=== PATIENT | female | born 1975 | race Caucasian/White ===

== ENCOUNTER 2023-10-05 10:04 | Emergency (ER) | payer SELFPAY ==
[~2023-10-05] VITALS: Ht 162.6 cm; Wt 90.9 kg
[2023-10-05 10:05] VITALS: TEMP 98.2
[2023-10-05] MEDS ORDERED: dilTIAZem 25 MG/5 ML VIAL IV ONE (10:30)
[2023-10-05 10:45] LABS: BASO # 0.1 K/mm3 (0.0-0.2); BASO % 1.2 % (0.0-2.0); EOS # 0.1 K/mm3 (0.0-0.7); EOS % 1.2 % (0.0-4.0); GRAN # 2.1 K/mm3 (1.4-6.5); GRAN % 51.8 % (42.2-75.2); LYMPH # 1.5 K/mm3 (1.2-3.4); LYMPH % 37.1 % (20.0-51.0); MEAN CELL VOLUME 76 fl (80.0-100.0); MEAN CORPUSCULAR HGB CONC 29 g/dl (33.0-37.0); MEAN PLATELET VOLUME 9.6 fl (7.4-10.4); MONO # 0.3 K/mm3 (0.1-0.6); MONO % 8.5 % (1.7-9.3); PLATELET COUNT 342 K/mm3 (130-400); RED BLOOD COUNT 3.88 M/mm3 (4.10-5.30); REDCELL DISTRIBUTION WIDTH-CV 18.7 % (11.5-14.5)
[2023-10-05 10:48] LABS: HEMATOCRIT 29.4 % (37.0-47.0); HEMOGLOBIN 8.6 g/dl (12.5-16.0); MEAN CORPUSCULAR HEMOGLOBIN 22 pg (27-31)
[2023-10-05 10:57] LABS: ALANINE AMINOTRANSFERASE 15 U/L (0-55); ALBUMIN 3.5 gm/dL (3.5-5.0); ALKALINE PHOSPHATASE 63 U/L (40-150); ANION GAP 11 mmol/L (7-16); AST,SGOT 20 U/L (5-34); BLOOD UREA NITROGEN 6 mg/dL (7-19); CALCIUM 8.5 mg/dL (8.4-10.2); CARBON DIOXIDE 19 mmol/L (22-29); CHLORIDE 109 mmol/L (98-107); CREATININE, serum 0.69 mg/dL (0.57-1.11); GLUCOSE 98 mg/dL (70-99); POTASSIUM 3.3 mmol/L (3.5-4.5); SODIUM 139 mmol/L (136-145); TOTAL PROTEIN 6.5 gm/dL (6.2-8.1)
[2023-10-05 11:13] LABS: TROPONIN-I < 0.010 ng/mL (0.00-0.033)
[2023-10-05] MEDS ORDERED: CARDIZEM CD 12120 MG PO (11:36)
[2023-10-05] MEDS ORDERED: XARELTO20 MG PO (11:36)
[2023-10-05 11:55] VITALS: BP 121/83; PULSE 98
[2023-10-08] MEDS ORDERED: ATARAX 25MG25 MG/TAB PO (16:12)
[2023-10-08] MEDS ORDERED: PEPCID40 MG PO (16:13)
[2023-10-08] MEDS ORDERED: NATURAL IRON65 MG PO (16:53)
[2023-10-09] MEDS ORDERED: MULTAQ400 MG PO (15:31)
== END 2023-10-05 11:59 | disposition home or self-care (01) ==
LOC: COL.ER 10:04
PROVIDERS: Personal Emergency Response Attendant
DX: I48.91 Unspecified atrial fibrillation (principal); D64.9 Anemia, unspecified; E87.6 Hypokalemia; Z87.891 Personal history of nicotine dependence

== ENCOUNTER → 2023-11-12 | Outpatient (CLI) | payer BC ==
[~2023-11-12] MED LIST: ATARAX 25MG25 MG/TAB PO; CARDIZEM CD 12120 MG PO; MULTAQ400 MG PO; NATURAL IRON65 MG PO; PEPCID40 MG PO; XARELTO20 MG PO
== END ==
LOC: MC.RAD 16:44
DX: Z12.31 Encounter for screening mammogram for malignant neoplasm of breast (principal); N63.20 Unspecified lump in the left breast, unspecified quadrant; N64.89 Other specified disorders of breast

== ENCOUNTER → 2023-11-25 | Outpatient (CLI) | payer BC | LOC: MC.RAD 12:56 | DX: N63.22 Unspecified lump in the left breast, upper inner quadrant (principal) ==

== ENCOUNTER 2024-05-26 10:37 | Emergency (ER) | payer BC ==
[~2024-05-26] VITALS: Ht 162.6 cm; Wt 97.7 kg
[2024-05-26 10:40] VITALS: TEMP 98.1
[2024-05-26] MEDS ORDERED: NS 1,000 ML IV ONE (11:00)
[2024-05-26 11:03] LABS: BASO # 0.1 K/mm3 (0.0-0.2); EOS % 0.3 % (0.0-4.0); GRAN # 4.7 K/mm3 (1.4-6.5); HEMOGLOBIN 11.6 g/dl (12.5-16.0); LYMPH # 1.8 K/mm3 (1.2-3.4); LYMPH % 25.4 % (20.0-51.0); MEAN CELL VOLUME 84 fl (80.0-100.0); MEAN CORPUSCULAR HEMOGLOBIN 28 pg (27-31); MEAN CORPUSCULAR HGB CONC 33 g/dl (33.0-37.0); MONO # 0.4 K/mm3 (0.1-0.6); PLATELET COUNT 300 K/mm3 (130-400); RED BLOOD COUNT 4.14 M/mm3 (4.10-5.30)
[2024-05-26 11:06] LABS: HEMATOCRIT 34.9 % (37.0-47.0)
[2024-05-26] MEDS ORDERED: ELIQUIS 5MG PO (11:13)
[2024-05-26] MEDS ORDERED: PRENATAL (11:13)
[2024-05-26 11:18] LABS: INR 1.3 (0.8-3.0); PROTHROMBIN TIME 13.7 SECONDS (9.7-12.8)
[2024-05-26 11:21] LABS: PARTIAL THROMBOPLASTIN TIME 35.4 SECONDS (26.0-37.0)
[2024-05-26 11:36] LABS: ALBUMIN 4.1 g/dL (3.5-5.0); CALCIUM 9.2 mg/dL (8.4-10.2); CREATININE, serum 0.8 mg/dL (0.57-1.11); POTASSIUM 3.9 mEq/L (3.5-4.5)
[2024-05-26 12:00] LABS: BILIRUBIN,TOTAL 1.3 mg/dL (0.2-1.2)
[2024-05-26] MEDS ORDERED: PROVERA 10MG10 MG PO (12:52)
[2024-05-26 13:02] VITALS: BP 116/87; PULSE 85
== END 2024-05-26 13:07 | disposition home or self-care (01) ==
LOC: COL.ER 10:37
PROVIDERS: Physician Assistant
DX: N93.9 Abnormal uterine and vaginal bleeding, unspecified (principal); I48.91 Unspecified atrial fibrillation; Z79.01 Long term (current) use of anticoagulants
CPT/HCPCS: J7030